=== PATIENT | female | born 1945 | race Caucasian/White ===

== ENCOUNTER 2016-06-19 11:55 | Emergency (ER) | payer MEDICARE, OTHER ==
[2016-06-19] MEDS ORDERED: ASPIRIN CHEWTAB 81 MG TABLET ONE (13:09)
[2016-06-19 13:18] LABS: ABSOLUTE NEUTROPHIL COUNT 4.5 K/mm3 (1.8-7.7); BASO # 0.1 K/mm3 (0.0-0.2); BASO % 0.7 % (0.2-1.0); EOS # 1.3 (0.0-0.5); EOS % 14.7 % (0.9-2.9); HEMATOCRIT 33.6 % (37.0-47.0); HEMOGLOBIN 11.2 gm/l (12.0-16.0); IMM NEUT% 0.3 % (0-1); LYMPH % 22.7 % (15-45); MEAN CELL VOLUME 93.6 fl (81.0-99.0); MEAN CORPUSCULAR HEMOGLOBIN 31.2 pg (27.0-31.0); MEAN CORPUSCULAR HGB CONC 33.3 g/dl (33.0-37.0); MEAN PLATELET VOLUME 9.5 fl (7.4-10.4); MONO # 0.8 (0.0-0.8); MONO % 9.6 % (4-12); PLATELET COUNT 306 K/mm3 (130-400); RED CELL DISTRIBUTION WIDTH 12.5 % (11.5-14.5)
--- NOTE | 2016-06-19 13:33 | RAD ---
SHOULDER-LEFT 2 OR MORE VIEWS COMPARISON: None HISTORY: Left upper arm pain for 5 days. FINDINGS: Views: Left shoulder AP, Grashey, and scapular Y Bones: Decreased mineralization. No fracture. Joints: Mild asymmetric narrowing of the glenoid joint. Calcification within the acromioclavicular joint. Soft tissues: Scattered calcifications in the rotator cuff. IMPRESSION: 1. Calcific tendinitis. The pattern of calcification would be very difficult to remove with sonographic guidance. However, the patient may benefit from pain relief from a corticosteroid injection. 2. 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 3. Chondrocalcinosis of the acromioclavicular joint. 4. Generalized osteopenia.
[2016-06-19 13:41] LABS: ALB/GLOB RATIO 1.3 (>1.0); CALCIUM 10.3 mg/dL (8.6-10.3)
--- NOTE | 2016-06-19 13:47 | RAD ---
CHEST - 2 VIEWS COMPARISON: Chest 2 views, 09/13/2015 HISTORY: Left upper arm pain for 5 days. FINDINGS: Views: Frontal and lateral chest Lungs: Normal Heart and vessels: No acute finding. Elongated thoracic aorta. Trachea and bronchi: Normal Mediastinum and arabella: Normal Costophrenic sulci: Normal Chest wall and bones: No acute finding. Spondylosis of the thoracic spine. Evidence of chronic complete rotator cuff tear of the right shoulder. Upper abdomen: Surgical clips in the right upper quadrant. IMPRESSION: 1. No acute finding. 2. Atherosclerosis of the aorta, spondylosis of the thoracic spine, chronic right rotator cuff tear, and cholecystectomy clips.
== END 2016-06-19 14:47 | disposition home or self-care (01) ==
LOC: ED 11:55
DX: M79.602 Pain in left arm (principal); I10 Essential (primary) hypertension
CPT/HCPCS: 85025; 80053; 84484; 71020; 73030; 99283 ×2; 93005; A9270